=== PATIENT | female | born 1975 | race American Indian/Alaskan Native ===

== ENCOUNTER 2017-07-11 11:17 | Outpatient (CLI) | payer BC ==
--- NOTE | 2017-07-11 12:56 | Mammography Report ---
The patient had this exam on the date indicated above. It was indicated to us that previous films should be available that would be helpful in providing optimal evaluation with regards to the current study. A final report will be issued, pending receipt of the prior study. CAD was utilized.
== END 2017-07-11 11:18 | disposition home or self-care (01) ==
LOC: MAMMO 11:17
PROVIDERS: ATTEND Family Medicine
DX: Z12.31 Encounter for screening mammogram for malignant neoplasm of breast (principal)
CPT/HCPCS: 77067; G0202

== ENCOUNTER 2019-09-08 07:25 | Outpatient (CLI) | payer BC ==
--- NOTE | 2019-09-08 13:45 | Mammography Report ---
DIGITAL SCREENING MAMMOGRAM WITH CAD, 09/08/2019 INDICATION: Routine screening mammography. TECHNIQUE: Digital bilateral 2D mammography was obtained in the craniocaudal and mediolateral obliq ue projections without and with implant displacement. This examination was interpreted with the benef it of Computer-Aided Detection analysis. COMPARISON: 07/15/2018 and 07/11/2017 FINDINGS: Breast Density: The breasts are heterogeneously dense, which may obscure small masses. Right asymmetries on both implant displaced views require additional imaging. No architectural distor tion or suspicious calcifications of the right breast. There is no evidence of dominant mass, suspici ous calcifications or architectural distortion in the left breast. Bilateral subglandular implants in place. IMPRESSION: Right asymmetries requiring additional imaging. Recommend recall for right implant displa radha spot compression views and right breast ultrasound if needed. Follow up recommendation: Special View: Spot Category 0: Incomplete. Needs additional imaging evaluation and/or prior mammograms for comparison. A "normal" or negative report should not discourage follow up or biopsy of a clinically significant f inding. A written summary of these findings will be mailed to the patient. The patient will be entered into a mammography reporting system which will generate a reminder letter for the patient's next appointmen t at the appropriate interval. [employer] recommends yearly mammograms starting at age 40 and continuing as l dorina as a woman is in good health. Breast MRI is recommended for women with an approximate 20-25% or greater lifetime risk of breast cancer, including women with a strong family history of breast or ova carolyne cancer or who have been treated for Hodgkin's disease. Signer Name: Robert Sullivan MD Signed: 09/08/2019 1:41 PM Workstation Name: [id number]
== END 2019-09-08 07:26 | disposition home or self-care (01) ==
LOC: MAMMO 07:25
PROVIDERS: ATTEND Family Medicine
DX: Z12.31 Encounter for screening mammogram for malignant neoplasm of breast (principal)
CPT/HCPCS: 77067